=== PATIENT | female | born 1975 | race Caucasian/White ===

== ENCOUNTER 2016-12-17 09:24 | Emergency (ER) | payer BC ==
--- NOTE | 2016-12-17 09:56 | EDM.PDOC ---
ED HPI GENERAL MEDICAL PROBLEM - General Chief Complaint: Chest Pain Stated Complaint: CHEST PAIN Time Seen by Provider: 12/17/16 09:51 Source of Information: Reports: Patient, Family (spouse) History Limitations: Reports: No Limitations - History of Present Illness INITIAL COMMENTS - FREE TEXT/NARRATIVE: 41-year-old female presents to the ED with acute onset of severe right upper anterior chest sharp stabbing chest pain. She does feel radiates around the rib to her back. It made her transiently short of breath. Denies diaphoresis nausea or vomiting. Denies cough or sputum production. Report or related to any injury to her chest wall in the last 2-3 days. She does not have asthma. Pain currently she states is 6 or 7 out of 10 very sharp and pleuritic. No recent travel history or worrisome concerns for pulmonary embolism. No dysphagia or odynophagia. Onset: Today Onset Date: 12/17/16 Onset Time: 09:05 Duration: Minutes: Location: Reports: Chest (Right upper anterior chest.) Quality: Reports: Sharp, Stabbing, Other Severity: Moderate (Strongly pleuritic chest pain worsened by deep breathing. Rates pain as 6 or 7 out of 10.) Improves with: Reports: Rest Worsens with: Reports: Other, Movement Context: Denies: Activity (Deep breathing.), Exercise, Lifting, Sick Contact, Trauma, Other Associated Symptoms: Reports: Chest Pain. 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: Other (see below) (None.) Right Chest Pain Score (Numeric/FACES): 8 - Related Data Allergies Allergy/AdvReac Type Severity Reaction Status Date / Time bee venom protein (honey bee) Allergy Swelling Verified 12/17/16 09:37 Home Meds: Home Meds Lisinopril 10 mg PO DAILY 12/17/16 [History] Past Medical History HEENT History: Reports: Impaired Vision Cardiovascular History: Reports: Hypertension Psychiatric History: Reports: Anxiety - Infectious Disease History Infectious Disease History: Reports: Chicken Pox Social & Family History - Tobacco Use Smoking Status *Q: Current Every Day Smoker Years of Tobacco use: 15 Packs/Tins Daily: 0.1 - Caffeine Use Caffeine Use: Reports: Coffee, Soda, Tea - Alcohol Use Days Per Week of Alcohol Use: 2 Number of Drinks Per Day: 2 Total Drinks Per Week: 4 - Recreational Drug Use Recreational Drug Use: No - Living Situation & Occupation Living situation: Reports: Occupation: Employed ED ROS GENERAL - Review of Systems Review Of Systems: See Below Constitutional: Denies: Fever, Chills, Malaise, Weakness, Fatigue, Decreased Appetite, Weight Loss HEENT: Reports: No Symptoms Respiratory: Reports: Shortness of Breath. Denies: Wheezing, Pleuritic Chest Pain (With deep breathing), Cough, Sputum, Hemoptysis, Other Cardiovascular: Reports: Chest Pain (Right anterior). Denies: Blood Pressure Problem ( upper chest pain.), Claudication, Dyspnea on Exertion, Edema, Lightheadedness, Orthopnea, Palpitations Endocrine: Reports: No Symptoms GI/Abdominal: Reports: No Symptoms : Reports: No Symptoms Musculoskeletal: Reports: No Symptoms Skin: Reports: No Symptoms Neurological: Reports: No Symptoms Psychiatric: Reports: No Symptoms ED EXAM, GENERAL - Physical Exam Exam: See Below Exam Limited By: No Limitations General Appearance: Alert, WD/WN, Mild Distress (Appears quite anxious.) Eye Exam: Bilateral Eye: Normal Inspection Throat/Mouth: Normal Inspection, Normal Lips, Normal Teeth, Normal Gums, Normal Oropharynx Head: Atraumatic, Normocephalic Neck: Normal Inspection, Supple, Non-Tender, Full Range of Motion. No: Carotid Bruit, Lymphadenopathy (L) Respiratory/Chest: No Respiratory Distress, Lungs Clear, Normal Breath Sounds, No Accessory Muscle Use, Chest Non-Tender, Other (I could not elucidate any area of chest wall tenderness.) Cardiovascular: Normal Peripheral Pulses, Regular Rate, Rhythm, No Edema, No Gallop, No Murmur Peripheral Pulses: 2+: Posterior Tibial (L), Posterior Tibial (R), Dorsalis Pedis (L), Dorsalis Pedis (R) GI/Abdominal: Normal Bowel Sounds, Soft, Non-Tender, No Organomegaly, No Distention, No Abnormal Bruit, No Mass, Pelvis Stable, Other Back Exam: Normal Inspection, Full Range of Motion. No: CVA Tenderness (L), CVA Tenderness (R) Extremities: Normal Inspection, Normal Range of Motion, Non-Tender, No Pedal Edema, Normal Capillary Refill Neurological: Alert, Oriented, CN II-XII Intact, Normal Cognition Psychiatric: Normal Affect, Anxious Skin Exam: Warm, Dry, Intact, Normal Color, No Rash EKG INTERPRETATION EKG Date: 12/17/16 Time: 09:30 Rhythm: NSR Rate (Beats/Min): 82 Raymond: Normal P-Wave: Present QRS: Other (Mildly decreased voltage in the precordial leads.) ST-T: Normal QT: Prolonged (Minimally prolonged.) Course - Vital Signs Last Recorded V/S: Last Vital Signs Temp 36.4 C 12/17/16 09:29 Pulse 68 12/17/16 11:35 Resp 18 12/17/16 09:29 BP 123/88 12/17/16 11:35 Pulse Ox 100 12/17/16 09:29 - Orders/Labs/Meds Orders: Active Orders 24 hr Category Date Time Status EKG Documentation Completion [RC] STAT Care 12/17/16 09:28 Active Chest 1V Frontal [CR] Stat Exams 12/17/16 09:52 Taken COMPREHENSIVE METABOLIC PN,CMP [CHEM] Stat Lab 12/17/16 09:40 Results CRP [C-REACTIVE PROTEIN] [CHEM] Stat Lab 12/17/16 09:40 Results TROPONIN I [CHEM] Stat Lab 12/17/16 09:40 Results Labs: Laboratory Tests 12/17/16 12/17/16 12/17/16 Range/Units 09:40 09:40 09:40 WBC 8.54 (3.98-10.04) K/mm3 RBC 4.58 (3.98-5.22) M/mm3 Hgb 14.2 (11.2-15.7) gm/L Hct 41.7 (34.1-44.9) % MCV 91.0 (79.4-94.8) fl MCH 31.0 (25.6-32.2) pg MCHC 34.1 (32.2-35.5) g/dl RDW Std Deviation 44.6 (36.4-46.3) fL Plt Count 291 (182-369) K/mm3 MPV 10.5 (9.4-12.3) fl Neutrophils % (Manual) 71 H (40-60) % Band Neutrophils % 0 (0-10) % Lymphocytes % (Manual) 23 (20-40) % Atypical Lymphs % 0 % Monocytes % (Manual) 2 (2-10) % Eosinophils % (Manual) 4 (0.7-5.8) % Basophils % (Manual) 0 L (0.1-1.2) Platelet Estimate Adequate RBC Morph Comment Normal D-Dimer, Quantitative 0.30 (0.19-0.59) mg/L Sodium 137 (136-145) mEq/L Potassium 3.8 (3.5-5.1) mEq/L Chloride 102 (98-107) mEq/L Carbon Dioxide 28 (21-32) mEq/L Anion Gap 10.8 (5-15) BUN 14 (7-18) mg/dL Creatinine 1.0 (0.55-1.02) mg/dL Est Cr Clr Drug Dosing 71.27 mL/min Estimated GFR (MDRD) > 60 (>60) mL/min BUN/Creatinine Ratio 14.0 (14-18) Glucose 84 (74-106) mg/dL Calcium 9.2 (8.5-10.1) mg/dL Total Bilirubin 0.5 (0.2-1.0) mg/dL AST 21 (15-37) U/L ALT 24 (14-59) U/L Alkaline Phosphatase 51 (46-116) U/L Troponin I < 0.017 (0.00-0.056) ng/mL Total Protein 8.1 (6.4-8.2) g/dl Albumin 4.2 (3.4-5.0) g/dl Globulin 3.9 gm/dL Albumin/Globulin Ratio 1.1 (1-2) Meds: Medications Discontinued Medications Generic Name Dose Route Start Last Admin Trade Name Freq PRN Reason Stop Dose Admin Dextrose/Sodium Chloride 1,000 mls @ 150 mls/hr 12/17/16 10:00 12/17/16 10:08 Dextrose 5%-Normal Saline IV 150 mls/hr ASDIRECTED KELECHI Administration Ketorolac Tromethamine 30 mg 12/17/16 10:00 12/17/16 10:07 Toradol IVPUSH 30 mg ONETIME KELECHI Administration - Radiology Interpretation Free Text/Narrative:: 41-year-old female presents the ED with acute onset of sharp stabbing pleuritic right anterior upper chest pain that seems to radiate rate around the rib into her upper back. In came on about 45 minutes before attending the ED. No risk factors for pulmonary embolism. Every breast does hurt. She states is a constant ache with a 30 component with certain movements or deep breathing. No known chest wall injury or excessive activity involving chest wall most culture in the last 2 days. Examination was completely normal. ECG shows sinus rhythm at 82/m with no abnormalities noted. Plan IV D5 normal saline 150 mils per hour. Toradol 30 mg IV for pain relief. Chest x-ray to be done with routine labs including a troponin and d-dimer and CRP. Pain is likely chest wall in origin. - Re-Assessments/Exams Free Text/Narrative Re-Assessment/Exam: 12/17/16 10:13 chest x-ray done's portably is within normal limits. No pneumothorax. Chronic silhouette normal. 12/17/16 10:26 tolerating clear fluids quite well. No further nausea. Headache is down to 1 out of 10. She will therefore be discharged from the care of her will be doing the driving home. Suggest home to rest sleep for 3-4 hours to break the headache cycle. Resume diet when able. 12/17/16 11:21 labs are finally back. Total white count is 8.54 with 71% neutrophils and no bands. Hemoglobin is 14.2 with hematocrit of 41.7. Platelets 291,000. Chemistry is completely normal. D-dimer returned normal at 0.30. Is a CRP. Patient's pain appears to be chest wall in origin or neurogenic. Will advise Aleve 2 tablets every 8 hours to relieve pain and inflammation as needed. Monitor for development of shingles rash over the next 5-6 days. Turn to medical care if that occurs. Patient reassured. Departure - Departure Time of Disposition: 11:22 Disposition: Home, Self-Care 01 Condition: Fair Clinical Impression: Non-cardiac chest pain, Anterior chest wall pain Instructions: Nonspecific Chest Pain Referrals: Abel Johnston MD [Primary Care Provider] - Forms: ED Department Discharge, ED Return to Work/School Form Additional Instructions: Evaluation in the emergency room this morning in regards to development of sudden onset of sharp stabbing pleuritic right-sided chest pain. Along the rib and anterior back. All of the investigations carried out through the ED this morning were normal. Normal ECG normal chest x-ray and normal lab work ruling out a clot in the long etc. There appears to be an inflammation either of nerve or muscles in between the ribs on the right side. Suggest Aleve 2 tablets every 8 hours as needed to relieve pain and inflammation. Monitor for development of any kind of rash a sometimes shingles pain will start for 5 days before the rash shows up. If this occurs return to medical care. - My Orders Last 24 Hours: My Active Orders 12/17/16 09:28 EKG Documentation Completion [RC] STAT 12/17/16 09:40 COMPREHENSIVE METABOLIC PN,CMP [CHEM] Stat CRP [C-REACTIVE PROTEIN] [CHEM] Stat TROPONIN I [CHEM] Stat 12/17/16 09:52 Chest 1V Frontal [CR] Stat - Assessment/Plan Last 24 Hours: My Active Orders 12/17/16 09:28 EKG Documentation Completion [RC] STAT 12/17/16 09:40 COMPREHENSIVE METABOLIC PN,CMP [CHEM] Stat CRP [C-REACTIVE PROTEIN] [CHEM] Stat TROPONIN I [CHEM] Stat 12/17/16 09:52 Chest 1V Frontal [CR] Stat
[2016-12-17] MEDS ORDERED: Ketorolac 30 MG/ML SDV IVPUSH SCH (10:00)
[2016-12-17] MEDS ORDERED: Dextrose 5%-0.9% NaCl 1,000 ML IV SCH (10:00)
[2016-12-17 11:36] VITALS: BP 123/88
--- NOTE | 2016-12-17 16:09 | CR ---
Chest: Portable view of the chest was obtained. Comparison: No previous study. Heart size and mediastinum are normal. Lungs are clear. Bony structures are grossly intact. Impression: 1. Nothing acute is identified on portable chest x-ray. Diagnostic code #1
== END 2016-12-17 11:46 | disposition home or self-care (01) ==
LOC: JD.ED 09:24
DX: R07.89 Other chest pain (principal); I10 Essential (primary) hypertension; F17.210 Nicotine dependence, cigarettes, uncomplicated; Z91.030 Bee allergy status; Z79.899 Other long term (current) drug therapy
CPT/HCPCS: 36415; 71010; 80053; 84484; 85025; 85379; 86140; 93005; 96361; 96374; 99284; J1885; J7042